=== PATIENT | female | born 1990 | race Caucasian/White ===

== ENCOUNTER 2018-03-31 13:32 | Emergency (ER) | payer BC ==
[~2018-03-31] VITALS: Ht 154.9 cm; Wt 52.2 kg
[2018-03-31 13:34] VITALS: Ht 154.9 cm; Wt 52.2 kg
[2018-03-31 16:49] VITALS: BP 134/82
== END 2018-03-31 17:05 | disposition home or self-care (01) ==
LOC: ED 13:32
DX: S16.1XXA Strain of muscle, fascia and tendon at neck level, initial encounter (principal); S39.012A Strain of muscle, fascia and tendon of lower back, initial encounter; S20.219A Contusion of unspecified front wall of thorax, initial encounter; V49.88XA Car occupant (driver) (passenger) injured in other specified transport accidents, initial encounter; Y93.I9 Activity, other involving external motion; Y92.413 State road as the place of occurrence of the external cause; Y99.8 Other external cause status
CPT/HCPCS: J1885; J2270; Q0162